=== PATIENT | male | born 1995 | race Two or more races ===

== ENCOUNTER 2017-03-12 00:20 | Emergency (ER) | payer SELFPAY ==
[~2017-03-12] VITALS: Ht 172.7 cm; Wt 72.6 kg
--- NOTE | 2017-03-12 00:25 | NUR ---
TO BED 16 A 21 YO MALE PT BIBA, C/O ETOH, LOOKING INTO PEOPLE'S WINDOWS IN AN APARTMENT. UPON ARRIVAL TO ER, PATIENT IS AAOX3, NO S/S OF ACUTE DISTRESS. VSS. SAFETY MEASURES IN PLACE. AWAITING FOR ER MD COBB.
--- NOTE | 2017-03-12 02:01 | NUR ---
PATIENT IS SLEEPING COMFORTABLY AT THIS TIME.
--- NOTE | 2017-03-12 04:47 | NUR ---
Patient discharged to home in stable condition. Written and verbal after care instructions given. Patient verbalizes understanding of instruction. Patient is ambulatory with steady gait. VSS.
[2017-03-12 04:48] VITALS: BP 118/65
== END 2017-03-12 04:48 | disposition home or self-care (01) ==
LOC: ER 00:23
DX: F10.129 Alcohol abuse with intoxication, unspecified (principal)
CPT/HCPCS: 82962; 99283; A4606; Z7610